=== PATIENT | male | born 1930 | race Caucasian/White ===

== ENCOUNTER 2017-03-23 10:30 | Day surgery (SDC) | payer OTHER, BC ==
[~2017-03-23] VITALS: Ht 182.9 cm; Wt 108.9 kg
[~2017-03-23 10:30] MED LIST: ADULT LOW DOSE81 M1 PO; BP PO; CHOLESTEROL PO; CRESTOR40 MG PO; Fish Oil PO; LOPRESSOR100 MG PO; NORVASC10 MG PO; TOPROL XL100 MG PO; ZANTAC150 MG PO; Zestril,Prinivil PO
[2017-03-23] MEDS ORDERED: LASIX40 MG PO (11:08)
[2017-03-23] MEDS ORDERED: K-DUR20 MEQ PO (11:11)
[2017-03-23 11:24] VITALS: BP 166/75
[2017-03-23 14:10] VITALS: BP 156/77
[2017-03-23 15:15] VITALS: BP 166/85
== END 2017-03-23 15:15 | disposition home or self-care (01) ==
LOC: SDC 10:30
PROC: 01N50ZZ Release Median Nerve, Open Approach (ICD-10-PCS; principal; 2017-03-23)
DX: G56.02 Carpal tunnel syndrome, left upper limb (principal); I10 Essential (primary) hypertension; I25.2 Old myocardial infarction; K21.9 Gastro-esophageal reflux disease without esophagitis; Z79.01 Long term (current) use of anticoagulants; Z87.442 Personal history of urinary calculi; Z87.891 Personal history of nicotine dependence; Z79.82 Long term (current) use of aspirin; Z83.3 Family history of diabetes mellitus; Z82.49 Family history of ischemic heart disease and other diseases of the circulatory system
CPT/HCPCS: J0131; S0020

== ENCOUNTER 2017-04-27 10:43 | Day surgery (SDC) | payer OTHER, BC ==
[~2017-04-27] VITALS: Ht 182.9 cm; Wt 108.9 kg
[~2017-04-27 10:43] MED LIST changes: +K-DUR20 MEQ PO; +LASIX40 MG PO
[2017-04-27 11:14] VITALS: BP 156/74
[2017-04-27 14:45] VITALS: BP 116/67
[2017-04-27 16:15] VITALS: BP 134/63
== END 2017-04-27 16:20 | disposition home or self-care (01) ==
LOC: SDC 10:43
DX: G56.01 Carpal tunnel syndrome, right upper limb (principal); M72.0 Palmar fascial fibromatosis [Dupuytren]; Z79.82 Long term (current) use of aspirin; I10 Essential (primary) hypertension; I25.2 Old myocardial infarction; Z95.1 Presence of aortocoronary bypass graft; Z87.891 Personal history of nicotine dependence
CPT/HCPCS: J0690; J2250; J3010; J7050; S0020